=== PATIENT | female | born 1935 | race Caucasian/White ===

== ENCOUNTER 2018-05-27 18:20 | Inpatient (IN) | payer MEDICARE, OTHER ==
[2018-05-27] MEDS ORDERED: SODIUM CHLORIDE 0.9% 1,000 ML IV STA (18:44)
[2018-05-27 18:59] LABS: Basophils % (A) 0 %; Eosinophils # (A) 0.1 k/uL (0-0.7); Eosinophils % (A) 1 %; HCT 54.1 % (34.0-46.0); HGB 16.7 gm/dL (11.4-16.0); Hypochromasia Slight; Lymphocytes # (A) 3.3 k/uL (1.0-4.8); Lymphocytes % (A) 21 %; MCH 27.5 pg (25.0-35.0); MCV 88.7 fL (80.0-100.0); Mean Platelet Volume 7.5; Monocytes # (A) 0.8 k/uL (0-1.0); Monocytes % (A) 5 %; Neutrophils # (A) 11.2 k/uL (1.3-7.7); Neutrophils % (A) 71 %; Platelet Count 320 k/uL (150-450); RBC 6.09 m/uL (3.80-5.40); RDW 15.3 % (11.5-15.5); WBC 15.7 k/uL (3.8-10.6)
[2018-05-27 19:13] LABS: Albumin 3.6 g/dL (3.5-5.0); Calcium 9.1 mg/dL (8.4-10.2); Magnesium 2.1 mg/dL (1.6-2.3); Phosphorus 4.3 mg/dL (2.5-4.5); Potassium 4.1 mmol/L (3.5-5.1); Total Bilirubin 1.2 mg/dL (0.2-1.3); Total Protein 6.9 g/dL (6.3-8.2)
[2018-05-27 19:16] LABS: INR 1.3 (<1.2); Partial Thromboplastin Time 22.4 sec (22.0-30.0); Prothrombin Time 12.2 sec (9.0-12.0)
[2018-05-27 19:38] LABS: Creatine Kinase MB 1.7 ng/mL (0.0-2.4)
--- NOTE | 2018-05-27 19:38 | ED ---
Altered Mental Status HPI - General Chief Complaint: Altered Mental Status Stated Complaint: Sepsis Time Seen by Provider: 05/27/18 18:43 Source: EMS, RN notes reviewed, old records reviewed Mode of arrival: EMS Limitations: altered mental status - History of Present Illness Initial Comments: This is an 83-year-old female the ER for evaluation of altered mental status, patient is unable to give history, history obtained from patient's chart and transfer paperwork MD Complaint: altered mental status, confusion, decreased responsiveness, weakness -: days(s) Severity: moderate Consistency of Symptoms: unknown Context: other (dementia) Associated Symptoms: other (unable to answer) Treatments Prior to Arrival: oxygen - Related Data Home Medications Medication Instructions Recorded Confirmed Acetaminophen Tab [Tylenol Tab] 1,000 mg PO TID@,,05/27/18 05/27/18 Aspirin 81 mg PO DAILY@0700 05/27/18 05/27/18 Atenolol 25 mg PO DAILY@1700 05/27/18 05/27/18 Chlorthalidone 50 mg PO DAILY@0700 05/27/18 05/27/18 Levothyroxine Sodium [Synthroid] 175 mcg PO HS@2100 05/27/18 05/27/18 Multivitamins, Thera [Multivitamin 1 tab PO DAILY@0700 05/27/18 05/27/18 (formulary)] Polyethylene Glycol 3350 [Miralax] 17 gm PO DAILY@0700 05/27/18 05/27/18 Potassium Chloride [Klor-Con 10] 10 meq PO DAILY@0700 05/27/18 05/27/18 Thiamine [Vitamin B-1] 100 mg PO DAILY@0700 05/27/18 05/27/18 buPROPion HCL [Wellbutrin SR] 200 mg PO BID@,17 05/27/18 05/27/18 Allergies Allergy/AdvReac Type Severity Reaction Status Date / Time levofloxacin [From Levaquin] Allergy Unknown Verified 05/27/18 18:36 Review of Systems ROS Statement: Those systems with pertinent positive or pertinent negative responses have been documented in the HPI. ROS Other: All systems not noted in ROS Statement are negative. Past Medical History Additional Past Medical History / Comment(s): dementia History of Any Multi-Drug Resistant Organisms: None Reported Past Surgical History: No Surgical Hx Reported Past Psychological History: No Psychological Hx Reported Smoking Status: Unknown if ever smoked Past Alcohol Use History: Unable to Obtain Past Drug Use History: Unable to Obtain General Exam Limitations: altered mental status General appearance: alert, in no apparent distress Head exam: Present: atraumatic, normocephalic, normal inspection Eye exam: Present: normal appearance, PERRL, EOMI. Absent: scleral icterus, conjunctival injection, periorbital swelling ENT exam: Present: normal exam, mucous membranes moist Neck exam: Present: normal inspection. Absent: tenderness, meningismus, lymphadenopathy Respiratory exam: Present: normal lung sounds bilaterally. Absent: respiratory distress, wheezes, rales, rhonchi, stridor Cardiovascular Exam: Present: regular rate, normal rhythm, normal heart sounds. Absent: systolic murmur, diastolic murmur, rubs, gallop, clicks GI/Abdominal exam: Present: soft, normal bowel sounds. Absent: distended, tenderness, guarding, rebound, rigid Extremities exam: Present: normal inspection, full ROM, normal capillary refill. Absent: tenderness, pedal edema, joint swelling, calf tenderness Back exam: Present: normal inspection Neurological exam: Present: alert, oriented X3, CN II-XII intact Psychiatric exam: Present: normal affect, normal mood Skin exam: Present: warm, dry, intact, normal color. Absent: rash Course Vital Signs 05/27/18 18:36 Temperature 99.7 F H Pulse Rate 79 Respiratory 16 Rate Blood Pressure 141/63 O2 Sat by Pulse 96 Oximetry - Reevaluation(s) Reevaluation #1: 05/27/18 21:02 Transfer paperwork is thoroughly reviewed Medical Decision Making - Medical Decision Making 83 female unable to give history, patient is transferred to our hospital for dehydration, malnutrition, unresponsiveness. Patient will be admitted for further management - Lab Data Result diagrams: 05/27/18 18:35 05/27/18 18:35 Lab Results 05/27/18 05/27/18 05/27/18 Range/Units 18:35 18:35 18:35 WBC 15.7 H (3.8-10.6) k/uL RBC 6.09 H (3.80-5.40) m/uL Hgb 16.7 H (11.4-16.0) gm/dL Hct 54.1 H (34.0-46.0) % MCV 88.7 (80.0-100.0) fL MCH 27.5 (25.0-35.0) pg MCHC 31.0 (31.0-37.0) g/dL RDW 15.3 (11.5-15.5) % Plt Count 320 (150-450) k/uL Neutrophils % 71 % Lymphocytes % 21 % Monocytes % 5 % Eosinophils % 1 % Basophils % 0 % Neutrophils # 11.2 H (1.3-7.7) k/uL Lymphocytes # 3.3 (1.0-4.8) k/uL Monocytes # 0.8 (0-1.0) k/uL Eosinophils # 0.1 (0-0.7) k/uL Basophils # 0.0 (0-0.2) k/uL Hypochromasia Slight PT (9.0-12.0) sec INR (<1.2) APTT (22.0-30.0) sec Sodium 147 H (137-145) mmol/L Potassium 4.1 (3.5-5.1) mmol/L Chloride 108 H (98-107) mmol/L Carbon Dioxide 23 (22-30) mmol/L Anion Gap 16 mmol/L BUN 52 H (7-17) mg/dL Creatinine 1.16 H (0.52-1.04) mg/dL Est GFR (CKD-EPI)AfAm 50 (>60 ml/min/1.73 sqM) Est GFR (CKD-EPI)NonAf 44 (>60 ml/min/1.73 sqM) Glucose 166 H (74-99) mg/dL Plasma Lactic Acid Art (0.7-2.0) mmol/L Calcium 9.1 (8.4-10.2) mg/dL Phosphorus 4.3 (2.5-4.5) mg/dL Magnesium 2.1 (1.6-2.3) mg/dL Total Bilirubin 1.2 (0.2-1.3) mg/dL AST 41 H (14-36) U/L ALT 22 (9-52) U/L Alkaline Phosphatase 170 H (38-126) U/L Total Creatine Kinase 41 (30-135) U/L CK-MB (CK-2) 1.7 (0.0-2.4) ng/mL CK-MB (CK-2) Rel Index 4.1 Troponin I 0.061 H* (0.000-0.034) ng/mL Total Protein 6.9 (6.3-8.2) g/dL Albumin 3.6 (3.5-5.0) g/dL 05/27/18 05/27/18 Range/Units 18:35 18:35 WBC (3.8-10.6) k/uL RBC (3.80-5.40) m/uL Hgb (11.4-16.0) gm/dL Hct (34.0-46.0) % MCV (80.0-100.0) fL MCH (25.0-35.0) pg MCHC (31.0-37.0) g/dL RDW (11.5-15.5) % Plt Count (150-450) k/uL Neutrophils % % Lymphocytes % % Monocytes % % Eosinophils % % Basophils % % Neutrophils # (1.3-7.7) k/uL Lymphocytes # (1.0-4.8) k/uL Monocytes # (0-1.0) k/uL Eosinophils # (0-0.7) k/uL Basophils # (0-0.2) k/uL Hypochromasia PT 12.2 H (9.0-12.0) sec INR 1.3 H (<1.2) APTT 22.4 (22.0-30.0) sec Sodium (137-145) mmol/L Potassium (3.5-5.1) mmol/L Chloride (98-107) mmol/L Carbon Dioxide (22-30) mmol/L Anion Gap mmol/L BUN (7-17) mg/dL Creatinine (0.52-1.04) mg/dL Est GFR (CKD-EPI)AfAm (>60 ml/min/1.73 sqM) Est GFR (CKD-EPI)NonAf (>60 ml/min/1.73 sqM) Glucose (74-99) mg/dL Plasma Lactic Acid Art 2.0 (0.7-2.0) mmol/L Calcium (8.4-10.2) mg/dL Phosphorus (2.5-4.5) mg/dL Magnesium (1.6-2.3) mg/dL Total Bilirubin (0.2-1.3) mg/dL AST (14-36) U/L ALT (9-52) U/L Alkaline Phosphatase (38-126) U/L Total Creatine Kinase (30-135) U/L CK-MB (CK-2) (0.0-2.4) ng/mL CK-MB (CK-2) Rel Index Troponin I (0.000-0.034) ng/mL Total Protein (6.3-8.2) g/dL Albumin (3.5-5.0) g/dL - EKG Data -: EKG Interpreted by Me (EKG shows normal sinus rhythm rate of 82, RI 202, QRS 140, QTc 558) EKG shows normal: sinus rhythm Rate: normal Disposition Clinical Impression: Altered mental status, JAYME (acute kidney injury), Elevated troponin Disposition: ADMITTED IP TO THIS HOSP Condition: Fair Instructions: Altered Mental Status (ED) Is patient prescribed a controlled substance at d/c from ED?: No Referrals: Eldon Taylor MD [Primary Care Provider] - 1-2 days
[2018-05-27 19:40] LABS: Troponin I 0.061 ng/mL (0.000-0.034)
[2018-05-27] MEDS ORDERED: SODIUM CHLORIDE 0.9% 1,000 ML IV ONE (21:00)
[2018-05-28 07:29] LABS: Creatine Kinase MB 1.9 ng/mL (0.0-2.4)
[2018-05-28 07:42] LABS: Troponin I 0.069 ng/mL (0.000-0.034)
[2018-05-28] MEDS: ENOXAPARIN 40 MG/0.4 ML SYRINGE SQ SCH (09:03)
[2018-05-28] MEDS: ACETAMINOPHEN TAB 500 MG TAB PO SCH ×2 (14:13→16:51)
[2018-05-28] MEDS ORDERED: LORazepam 2 MG/ML INJ IV PRN (15:00)
--- NOTE | 2018-05-28 15:17 | P.CNNES ---
History of Present Illness Consult date: 05/28/18 History of Present Illness: Patient is an 83-year-old female who has a history of vascular dementia and stroke and is a resident [facility] who had some change in mental status and was sent to [facility] emergency room. Apparently the patient had had decreased alertness and usually she is oriented to self but she was more confused. Also she had not been eating as well or drinking is good. At [facility] emergency room she was found to have acute kidney injury elevated troponins and leukocytosis. She was transferred to [facility] with chief complaint of altered mental status. Neurology is requested to see the patient today for evaluation of altered mental status. Patient is unable to give any history. History is obtained from the patient's chart Review of Systems ROS unobtainable: due to mental status Past Medical History Past Medical History: Coronary Artery Disease (CAD), CVA/TIA, Dementia, Hypertension, Memory Impairment, Osteoarthritis (OA), Thyroid Disorder Additional Past Medical History / Comment(s): dementia History of Any Multi-Drug Resistant Organisms: None Reported Past Surgical History: No Surgical Hx Reported Additional Past Surgical History / Comment(s): per history taken from [facility] medical record Past Anesthesia/Blood Transfusion Reactions: No Reported Reaction Past Psychological History: Schizophrenia Additional Psychological History / Comment(s): documented per history Smoking Status: Unknown if ever smoked Past Alcohol Use History: Unable to Obtain Past Drug Use History: Unable to Obtain Medications and Allergies Home Medications Medication Instructions Recorded Confirmed Type Acetaminophen Tab [Tylenol Tab] 1,000 mg PO TID@07,13,17 05/27/18 05/27/18 History Aspirin 81 mg PO DAILY@0700 05/27/18 05/27/18 History Atenolol 25 mg PO DAILY@1700 05/27/18 05/27/18 History Chlorthalidone 50 mg PO DAILY@0700 05/27/18 05/27/18 History Levothyroxine Sodium [Synthroid] 175 mcg PO HS@2100 05/27/18 05/27/18 History Multivitamins, Thera [Multivitamin 1 tab PO DAILY@0700 05/27/18 05/27/18 History (formulary)] Polyethylene Glycol 3350 [Miralax] 17 gm PO DAILY@0700 05/27/18 05/27/18 History Potassium Chloride [Klor-Con 10] 10 meq PO DAILY@0700 05/27/18 05/27/18 History Thiamine [Vitamin B-1] 100 mg PO DAILY@0700 05/27/18 05/27/18 History buPROPion HCL [Wellbutrin SR] 200 mg PO BID@07,17 05/27/18 05/27/18 History Allergies Allergy/AdvReac Type Severity Reaction Status Date / Time levofloxacin [From Levaquin] Allergy Unknown Verified 05/27/18 18:36 Physical Examination - Vital Signs Vital Signs: Vital Signs Temp Pulse Pulse Resp BP BP Pulse Ox 05/28/18 11:34 97.9 F 88 18 137/71 96 05/28/18 08:00 98.7 F 90 18 142/78 98 05/28/18 04:00 96.7 F L 79 18 160/65 97 05/28/18 00:15 96.7 F L 77 18 134/64 93 L 05/27/18 22:21 73 18 166/70 97 05/27/18 20:45 72 146/68 98 05/27/18 20:15 78 144/64 99 05/27/18 19:45 82 18 139/66 99 05/27/18 18:36 99.7 F H 79 16 141/63 96 Intake and Output 05/27/18 05/28/18 05/28/18 22:59 06:59 14:59 Intake Total 0 Balance 0 Intake: Oral 0 Other: Voiding Method Diaper Diaper # Voids 1 2 Weight 68.039 kg 66 kg - Constitutional General appearance: obese - Respiratory Respiratory: lungs clear - Cardiovascular Cardiovascular: regular rate - Neurologic Neurologic examination: Mental status: Patient is awake. She is speaking gibberish. She is unable to follow commands. Next Cranial nerve examination pupils were equal and reactive. Tongue was midline. There was no nystagmus and no obvious facial asymmetry next Motor examination she had rigidity in both lower extremities. Upper extremities she was unable to participate in strength testing. Results - Laboratory Findings CBC and BMP: 05/27/18 18:35 05/27/18 18:35 Abnormal Lab Findings: Abnormal Labs 05/27/18 05/27/18 05/27/18 18:35 18:35 18:35 WBC 15.7 H RBC 6.09 H Hgb 16.7 H Hct 54.1 H Neutrophils # 11.2 H PT INR Sodium 147 H Chloride 108 H BUN 52 H Creatinine 1.16 H Glucose 166 H AST 41 H Alkaline Phosphatase 170 H Troponin I 0.061 H* 05/27/18 05/28/18 18:35 06:22 WBC RBC Hgb Hct Neutrophils # PT 12.2 H INR 1.3 H Sodium Chloride BUN Creatinine Glucose AST Alkaline Phosphatase Troponin I 0.069 H* Assessment and Plan (1) Altered mental status Current Visit: Yes Status: Acute SNOMED Code(s): 198209181 Plan: The patient is an 83-year-old woman is a resident of [facility] with history of vascular dementia and stroke. The patient was sent to emergency room because of altered mental status reduced ability to drink and eat and leukocytosis. She is unable to give any history. Apparently the patient is usually alert 1. She had a CAT scan of the brain at [facility] which showed atrophy and dilated ventricles. The patient also has increased troponin and acute kidney injury. The patient has an elevated white cell count. The patient's altered mental status may be of metabolic encephalopathy. Recommend urinalysis area and recommend follow-up CT brain as well as an EEG.
--- NOTE | 2018-05-28 15:21 | XR ---
EXAMINATION TYPE: XR chest 1V portable DATE OF EXAM: 05/28/2018 COMPARISON: 08/30/2010 HISTORY: Altered mental status and congestive heart failure TECHNIQUE: Single frontal view of the chest is obtained. FINDINGS: Overall there are low lung volumes. There is no focal air space opacity, pleural effusion, or pneumothorax seen. The cardiac silhouette size is within normal limits. Arthropathy of the glenoh umeral joints is advanced on the right.. IMPRESSION: Hypoventilatory lungs in comparison to the prior with no acute cardiopulmonary process i dentified.
--- NOTE | 2018-05-28 15:47 | CT ---
EXAMINATION TYPE: CT brain wo con DATE OF EXAM: 05/28/2018 COMPARISON: 08/31/2010 HISTORY: Patient poor historian CT DLP: 1225 mGycm Automated exposure control for dose reduction was used. TECHNIQUE: CT scan of the head is performed without contrast. FINDINGS: There is no acute intracranial hemorrhage or midline shift identified. There is diffuse v entricular and sulcal prominence similar in degree to 2011. There is low-attenuation in the perivent ricular white matter consistent with chronic small vessel ischemic change. The globes are intact and the visualized sinuses are clear. 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 IMPRESSION: No acute intracranial hemorrhage or midline shift. Ventricular enlargement may relate to diffuse atrophy or normal pressure hydrocephalus but is similar in degree to the prior of 2010 witho ut acute change.
--- NOTE | 2018-05-28 16:24 | HP ---
HISTORY AND PHYSICAL DATE OF SERVICE: 05/28/2018 CHIEF COMPLAINT: Change in mental status. HISTORY OF PRESENT ILLNESS: This 83-year-old woman with a past medical history of multiple medical problems such as CAD, CVA, TIA, dementia, hypertension, history of DJD, hypothyroidism, being followed by Dr. Taylor in the outpatient setting, was apparently a resident of an [facility]. The patient was noted to have change in mental status. The patient is unable to give a coherent history and most of the history is taken from discussion with staff and review of the chart at this time. However, the patient was given Zosyn and vancomycin. Cultures were taken and the patient was transferred to [facility] and admitted for further evaluation and treatment. The troponins were also found to be elevated at 0.061. PAST MEDICAL HISTORY: 1. History of CAD. 2. CVA, TIA. 3. Dementia. 4. Hypertension. 5. History of DJD. 6. History of hypothyroidism. MEDICATIONS PRIOR TO ADMISSION: 1. Wellbutrin SR 200 mg p.o. b.i.d. 2. Vitamin B1 100 mg p.o. daily. 3. Klor-Con 10 mEq p.o. daily. 4. MiraLAX 17 grams daily. 5. Multivitamins 1 p.o. daily. 6. Synthroid 175 mcg p.o. at bedtime. 7. Chlorthalidone 50 mg p.o. daily. 8. Atenolol 25 mg p.o. daily. 9. Aspirin 81 mg daily. 10.Tylenol 1000 mg p.o. t.i.d. ALLERGIES: LEVAQUIN. Family history, social history, review of systems could not be taken. PHYSICAL EXAMINATION: Patient is stuporous. Pulse 88, blood pressure 137/71, respiration 18, temperature 97.9, pulse ox 96% on 2 L. HEENT: Conjunctivae normal. Oral mucosa moist. NECK: No jugular venous distention. No carotid bruit. No lymph node enlargement. CARDIOVASCULAR SYSTEM: S1, S2 muffled. RESPIRATORY SYSTEM: Breath sounds diminished at the bases. Scattered rhonchi. NO crackles. ABDOMEN: Soft, obese, nontender. No mass palpable. LEGS: No edema. No swelling. NERVOUS SYSTEM: Full neurology exam is not possible. Patient moves all 4 limbs. LYMPHATICS: No lymph node palpable in neck, axillae or groin. SKIN: No ulcer, rash, bleeding. LABS AT THIS TIME: WBC 15.7, hemoglobin 16.7, INR 1.3. Sodium 147, creatinine 1.16. ASSESSMENT: 1. Change in mental status, metabolic encephalopathy, etiology undetermined. 2. Possible sepsis; rule out urinary tract infection with sepsis. 3. Increased white count. 4. Hypernatremia with increased creatinine and dehydration, present on admission. 5. Coronary artery disease. 6. Dementia. 7. History of cerebrovascular incident. 8. Hypertension. 9. History of memory impairment. 10.History of degenerative joint disease. 11.Hypothyroidism. 12.History of schizophrenia. 13.NO CODE, NO CPR, NO VENT. RECOMMENDATIONS AND DISCUSSION: In this 83-year-old woman who presented with multiple complex medical issues, we will monitor the patient closely, continue the current medications, continue with symptomatic treatment. Will initiate broad-spectrum IV antibiotics. Otherwise, I would also recommend IV fluids, avoid sedatives. Cultures. Obtain records from the peripheral hospital. I would recommend a chest x-ray and CT scan of the brain also repeat. Prognosis guarded. Further recommendations to follow. Please note: The patient is NO CODE. Neurology will be consulted. MMODL / IJN: [id number] /
[2018-05-28] MEDS: PANTOPRAZOLE 40 MG/10 ML VIAL IVP SCH (16:48)
[2018-05-28] MEDS: PIPERACILLIN-TAZOBACTAM 3.375 GM in DEXTROSE/WATER 1 50ML.BAG IVPB SCH (16:50)
[2018-05-28] MEDS: SODIUM CHLORIDE 0.9% 1,000 ML IV SCH (16:51)
[2018-05-28] MEDS: buPROPion SR 100 MG TABLET.ER PO SCH (16:51)
[2018-05-28] MEDS: ATENOLOL 25 MG TAB PO SCH (16:51)
--- NOTE | 2018-05-28 17:00 | CONS ---
CONSULTATION CHIEF COMPLAINT: Elevated troponin. Evelyne is an 83-year-old lady who was transferred from a hospital. Patient was initially admitted to [facility], where she initially presented with confusion and altered mental status. She was in a fci, where she was not doing well and subsequently was admitted to hospital. She went on to have a CT scan of the brain that revealed atrophy, chest x-ray that was unremarkable, EKG that showed sinus atrial fibrillation with rapid ventricular rate with right bundle branch block. Subsequently she converted to sinus rhythm and stayed in sinus rhythm. An EKG done here showed normal sinus rhythm with right bundle branch block. Somewhere along the line she apparently had a troponin; I am not quite sure why this was done. It was elevated, for which Cardiology had been consulted. At time of my evaluation, patient is confused, lying in the bed, and not giving any information. MEDICATIONS: Medications at home are as charted. ALLERGIES: LEVOFLOXACIN. REVIEW OF SYSTEMS: I am unable to obtain from the patient. PAST MEDICAL HISTORY: Significant for dementia. SOCIAL HISTORY: Negative for smoking. PHYSICAL EXAMINATION: Patient appears confused but not combative. Afebrile. Heart rate is 90 beats per minute. Blood pressure is 140/70, respiratory rate 18, oxygen saturation 98% on 2 L. There is no jugular venous distention. Chest exam reveals diminished air entry at the bases. Heart exam reveals first and second heart sounds and a systolic murmur at the left lower sternal border. Abdomen is soft. Examination of extremities did not reveal any edema. LABS: Hemoglobin 16.7, potassium 4.1, BUN 52, creatinine 1. Her troponins are 0.06 and 0.06. ASSESSMENT: 1. Confusional state; etiology is unclear. Management as per primary. 2. Elevated troponin related to renal insufficiency. I am going to obtain a 2D echo to evaluate her LV function and to assess for any wall motion abnormalities. Her prognosis is guarded, primarily from the underlying confusion. Thank you for allowing us to participate in the care of this pleasant lady. MMODL / IJN: [id number] /
[2018-05-28] MEDS: LEVOTHYROXINE 100 MCG TAB PO SCH ×2 (21:16→21:24)
[2018-05-28] MEDS: LEVOTHYROXINE 75 MCG TAB PO SCH ×2 (21:17→21:24)
[2018-05-29] MEDS: PIPERACILLIN-TAZOBACTAM 3.375 GM in DEXTROSE/WATER 1 50ML.BAG IVPB SCH ×4 (00:16→23:45)
[2018-05-29] MEDS: SODIUM CHLORIDE 0.9% 1,000 ML IV SCH (05:26)
[2018-05-29 06:41] LABS: Basophils % (A) 0 %; Eosinophils # (A) 0.1 k/uL (0-0.7); Eosinophils % (A) 1 %; Hypochromasia Marked; Lymphocytes # (A) 2.4 k/uL (1.0-4.8); Lymphocytes % (A) 21 %; MCH 27.4 pg (25.0-35.0); MCHC 30.4 g/dL (31.0-37.0); MCV 90.1 fL (80.0-100.0); Mean Platelet Volume 7.4; Monocytes # (A) 0.7 k/uL (0-1.0); Monocytes % (A) 6 %; Neutrophils # (A) 8.2 k/uL (1.3-7.7); Neutrophils % (A) 71 %; Platelet Count 264 k/uL (150-450); RBC 5.11 m/uL (3.80-5.40); RDW 15.4 % (11.5-15.5); WBC 11.7 k/uL (3.8-10.6)
[2018-05-29 06:53] LABS: Calcium 8.6 mg/dL (8.4-10.2); Potassium 3.4 mmol/L (3.5-5.1)
[2018-05-29] MEDS: MULTIVITAMINS, THERA 1 EACH TAB PO SCH (07:20)
[2018-05-29] MEDS: POLYETHYLENE GLYCOL 3350 17 GM POWD.PACK PO SCH (07:20)
[2018-05-29] MEDS: CHLORTHALIDONE 25 MG TAB PO SCH (07:20)
[2018-05-29] MEDS: ASPIRIN 81 MG PO SCH (07:20)
[2018-05-29] MEDS: buPROPion SR 100 MG TABLET.ER PO SCH ×2 (07:20→16:32)
[2018-05-29] MEDS: POTASSIUM CHLORIDE ER 10 MEQ TAB.ER.PRT PO SCH (07:20)
[2018-05-29] MEDS: ACETAMINOPHEN TAB 500 MG TAB PO SCH ×3 (07:20→16:32)
[2018-05-29] MEDS: THIAMINE 100 MG TAB PO SCH (07:21)
[2018-05-29] MEDS: PANTOPRAZOLE 40 MG/10 ML VIAL IVP SCH (07:47)
[2018-05-29] MEDS: ENOXAPARIN 40 MG/0.4 ML SYRINGE SQ SCH (07:48)
[2018-05-29] MEDS ORDERED: Potassium Replacement Protocol 1 EACH MISC MISCELLANE PRN (08:37)
[2018-05-29] MEDS ORDERED: DEXTROSE 5% IN WATER 1,000 ML IV ONE (11:27)
[2018-05-29] MEDS: POTASSIUM CHLORIDE 10 MEQ in WATER FOR INJECTION 1 100ML.BAG IVPB SCH ×2 (11:55→13:02)
--- NOTE | 2018-05-29 14:30 | P.PN ---
Subjective Progress Note Date: 05/29/18 This 83-year-old female patient who presented to the hospital with acute change in mental status. She was originally at [place] emergency department and was transferred here. Patient's baseline mentation is normally alert and oriented to self but she had become more confused and the staff at the nursing facility significant concern. CAT scan of the brain showed atrophy , chest x-ray was unremarkable. EKG showed atrial fibrillation with a rapid ventricular response and a right bundle branch block initially. Since that time the patient has converted back to normal sinus mechanism. 2 troponins were found to be mildly elevated, non-trending and not consistent with acute myocardial infarction. The patient's sodium level is elevated. She is hemodynamically stable. Cannot answer questions at this time. Mumbles but is nonverbal. Objective - Vital Signs Vital signs: Vital Signs Temp 97.3 F L 05/29/18 11:50 Pulse 90 05/29/18 11:50 Resp 18 05/29/18 11:50 BP 115/65 05/29/18 11:50 Pulse Ox 98 05/29/18 11:50 Intake & Output 05/28/18 05/29/18 05/29/18 18:59 06:59 18:59 Intake Total 0 90 Balance 0 90 Weight 64 kg Intake: Oral 0 90 Other: Voiding Method Diaper Diaper Diaper Incontinent # Voids 2 2 # Bowel Movements 0 - Exam Gen.: Patient is sleepy, in no acute distress Lungs: Clear to auscultation no wheezes rales or rhonchi appreciated Heart: Regular rate and rhythm, 2/6 systolic murmur Abdomen: Soft, nondistended, bowel sounds positive Extremity: No lower extremity edema is noted. Pedal pulses are palpable. Neuro: Patient is sleepy, confused. - Labs CBC & Chem 7: 05/29/18 06:02 05/29/18 06:02 Labs: Abnormal Lab Results - Last 24 Hours (Table) 05/29/18 05/29/18 Range/Units 06:02 06:02 WBC 11.7 H (3.8-10.6) k/uL MCHC 30.4 L (31.0-37.0) g/dL Neutrophils # 8.2 H (1.3-7.7) k/uL Sodium 151 H (137-145) mmol/L Potassium 3.4 L (3.5-5.1) mmol/L Chloride 118 H (98-107) mmol/L Carbon Dioxide 20 L (22-30) mmol/L BUN 50 H (7-17) mg/dL Creatinine 1.16 H (0.52-1.04) mg/dL Glucose 126 H (74-99) mg/dL Microbiology - Last 24 Hours (Table) 05/28/18 11:30 Blood Culture - Preliminary Blood No Growth after 24 hours 05/28/18 11:18 Blood Culture - Preliminary Blood No Growth after 24 hours Assessment and Plan Assessment: Acute change in mental status with baseline orientation 1 Elevated troponin in the presence of renal insufficiency, not consistent with acute myocardial ischemia A. fib RVR, currently in a normal sinus mechanism Plan: Obtain echocardiogram to evaluate LV size and systolic function and continue with beta [place] and aspirin. Discontinue IV saline. It is unknown if the patient has a history of atrial fibrillation in the past as there is no medical documentation to support this. Patient has not been seen here in the past. She is not a good historian and no family is present. I do not believe the patient would be a good candidate for anticoagulation. From a cardiac standpoint, we will continue to monitor her on an as-needed basis. Please do not hesitate to call with any questions or concerns.
--- NOTE | 2018-05-29 15:16 | P.PN ---
Subjective Progress Note Date: 05/29/18 Principal diagnosis: Mental status changes I'm dictating progress note for Dr. García Interval history: Patient is an 83-year-old female who has a history of vascular dementia and stroke and is a resident [facility] who had some change in mental status and was sent to [place] emergency room. Apparently the patient had had decreased alertness and usually she is oriented to self but she was more confused. Also she had not been eating as well or drinking is good. At [place] emergency room she was found to have acute kidney injury elevated troponins and leukocytosis. She was transferred to [facility] with chief complaint of altered mental status. CAT scan of the brain showed atrophy, chest x-ray was unremarkable. EKG showed atrial fibrillation with a rapid ventricular response and a right bundle branch block initially. She does admit to the inpatient unit and has had neurology as well as cardiology consultation. 05/29/2018. Patient was seen and examined this morning. She is laying in bed. She is continued to be confused and there a poor historian. No reported fever. Blood culture, and urine culture pending. 2 troponins were found to be mildly elevated , non-trending and not consistent with acute myocardial infarction. The patient 's sodium level is elevated. IV fluids changed to D5 water. She is on IV antibiotics Zosyn. Objective - Vital Signs Vital signs: Vital Signs Temp 97.3 F L 05/29/18 11:50 Pulse 90 05/29/18 11:50 Resp 18 05/29/18 11:50 BP 115/65 05/29/18 11:50 Pulse Ox 98 05/29/18 11:50 Intake & Output 05/28/18 05/29/18 05/29/18 18:59 06:59 18:59 Intake Total 0 90 Balance 0 90 Weight 64 kg Intake: Oral 0 90 Other: Voiding Method Diaper Diaper Diaper Incontinent # Voids 2 2 # Bowel Movements 0 - Exam PHYSICAL EXAM: VITAL SIGNS: As mentioned above GENERAL: Patient is sleepy not in any acute discomfort HEENT: Normocephalic NECK: No JVD. Supple CARDIOVASCULAR: S1, S2 muffled. RESPIRATION: Breath sounds diminished in the bases. No rhonchi or crackles. No bronchial breathing. ABDOMEN: Soft, nontender . No guarding. .Bowel sounds heard. LEGS: No significant edema. Motor examination she had rigidity in both lower extremities. Upper extremities she was unable to participate in strength testing. PSYCHIATRY: Resting NERVOUS SYSTEM: Skin: no ulcer no rash Active Medications Acetaminophen (Tylenol Tab) 1,000 mg PO TID@,, [facility] Last Admin: 05/29/18 12:01 Dose: Not Given Aspirin (Aspirin) 81 mg PO DAILY@0700 [facility] Last Admin: 05/29/18 07:20 Dose: Not Given Atenolol (Tenormin) 25 mg PO DAILY@1700 [facility] Last Admin: 05/28/18 16:51 Dose: Not Given Bupropion HCl (Wellbutrin Sr) 200 mg PO BID@ [facility] Last Admin: 05/29/18 07:20 Dose: Not Given Chlorthalidone (Hygroton) 50 mg PO DAILY@0700 [facility] Last Admin: 05/29/18 07:20 Dose: Not Given Enoxaparin Sodium (Lovenox) 40 mg SQ DAILY [facility] Last Admin: 05/29/18 07:48 Dose: 40 mg Piperacillin/Tazobactam/ (Dextrose 3.375 gm/ IV Solution) 50 mls @ 12.5 mls/hr IVPB Q8HR [facility] Last Admin: 05/29/18 07:47 Dose: 12.5 mls/hr Dextrose/Water (Dextrose 5%-Water Iv Soln) 1,000 mls @ 75 mls/hr IV .[id number] ONE Stop: 05/30/18 00:46 Last Admin: 05/29/18 12:01 Dose: 75 mls/hr Levothyroxine Sodium (Synthroid) 75 mcg PO HS@2100 [facility] Last Admin: 05/28/18 21:24 Dose: Not Given Levothyroxine Sodium (Synthroid) 100 mcg PO HS@2100 [facility] Last Admin: 05/28/18 21:24 Dose: Not Given Lorazepam (Ativan) 0.5 mg IV Q6HR PRN PRN Reason: Anxiety Miscellaneous Information (Potassium Per Protocol) 1 each MISCELLANE DAILY PRN ; Protocol PRN Reason: Per Protocol Multivitamins (Theragran) 1 each PO DAILY@0700 [facility] Last Admin: 05/29/18 07:20 Dose: Not Given Pantoprazole Sodium (Protonix) 40 mg IVP DAILY [facility] Last Admin: 05/29/18 07:47 Dose: 40 mg Polyethylene Glycol (Miralax) 17 gm PO DAILY@0700 [facility] Last Admin: 05/29/18 07:20 Dose: Not Given Potassium Chloride (K-Dur 10) 10 meq PO DAILY@0700 [facility] Last Admin: 05/29/18 07:20 Dose: Not Given Thiamine HCl (Vitamin B-1) 100 mg PO DAILY@0700 [facility] Last Admin: 05/29/18 07:21 Dose: Not Given . - Labs CBC & Chem 7: 05/29/18 06:02 05/29/18 14:27 Labs: Abnormal Lab Results - Last 24 Hours (Table) 05/29/18 05/29/18 Range/Units 06:02 06:02 WBC 11.7 H (3.8-10.6) k/uL MCHC 30.4 L (31.0-37.0) g/dL Neutrophils # 8.2 H (1.3-7.7) k/uL Sodium 151 H (137-145) mmol/L Potassium 3.4 L (3.5-5.1) mmol/L Chloride 118 H (98-107) mmol/L Carbon Dioxide 20 L (22-30) mmol/L BUN 50 H (7-17) mg/dL Creatinine 1.16 H (0.52-1.04) mg/dL Glucose 126 H (74-99) mg/dL Microbiology - Last 24 Hours (Table) 05/28/18 11:30 Blood Culture - Preliminary Blood No Growth after 24 hours 05/28/18 11:18 Blood Culture - Preliminary Blood No Growth after 24 hours Assessment and Plan Assessment: Acute mental status changes negative CAT scan possible metabolic encephalopathy Metabolic encephalopathy Urinary tract infection Possible sepsis Atrial fibrillation with RVR, currently in normal sinus rhythm History of CVA/TIA Hyponatremia Hypokalemia CKD stage III Coronary artery disease HTN Thyroid disorder Dementia Osteoarthritis Plan: Continue current medication, antibiotic in the form of Zosyn. Change IV fluid D5 water. Patient is followed by neurology as well as cardiology. Obtain echocardiogram to evaluate LV size and systolic function. As for a neurology The patient's altered mental status may be of metabolic encephalopathy. Recommend urinalysis area and recommend follow-up CT brain as well as an EEG. Monitor CBC and BMP. Prognosis is guarded due to multiple complex medical problems. Monitor patient closely, although partly from her clinical course. The impression and plan of care has been dictated as directed. : I performed a history and examination of this patient, discussed the same with the dictator. I agree with the dictator's note ,documented as a scribe. Any additional findings or plans will be noted.
[2018-05-29] MEDS: ATENOLOL 25 MG TAB PO SCH (16:32)
[2018-05-29] MEDS: LEVOTHYROXINE 75 MCG TAB PO SCH (20:53)
[2018-05-29] MEDS: LEVOTHYROXINE 100 MCG TAB PO SCH (20:53)
[2018-05-30] MEDS: ACETAMINOPHEN TAB 500 MG TAB PO SCH ×3 (06:16→14:03)
[2018-05-30] MEDS: ASPIRIN 81 MG PO SCH (06:16)
[2018-05-30] MEDS: THIAMINE 100 MG TAB PO SCH (06:17)
[2018-05-30] MEDS: POTASSIUM CHLORIDE ER 10 MEQ TAB.ER.PRT PO SCH (06:17)
[2018-05-30] MEDS: CHLORTHALIDONE 25 MG TAB PO SCH (06:17)
[2018-05-30] MEDS: MULTIVITAMINS, THERA 1 EACH TAB PO SCH (06:17)
[2018-05-30] MEDS: buPROPion SR 100 MG TABLET.ER PO SCH ×2 (06:17→15:20)
[2018-05-30] MEDS: POLYETHYLENE GLYCOL 3350 17 GM POWD.PACK PO SCH (06:17)
[2018-05-30 07:52] LABS: Calcium 8.9 mg/dL (8.4-10.2); Potassium 3.7 mmol/L (3.5-5.1)
[2018-05-30 08:34] LABS: Basophils # (A) 0.1 k/uL (0-0.2); Basophils % (A) 0 %; Eosinophils # (A) 0.1 k/uL (0-0.7); Eosinophils % (A) 0 %; HCT 48.3 % (34.0-46.0); HGB 15.1 gm/dL (11.4-16.0); Hypochromasia Slight; Lymphocytes % (A) 12 %; MCH 27.6 pg (25.0-35.0); MCHC 31.2 g/dL (31.0-37.0); MCV 88.4 fL (80.0-100.0); Mean Platelet Volume 7.5; Monocytes # (A) 1.1 k/uL (0-1.0); Monocytes % (A) 6 %; Neutrophils # (A) 14.3 k/uL (1.3-7.7); Neutrophils % (A) 81 %; Platelet Count 273 k/uL (150-450); RBC 5.47 m/uL (3.80-5.40); RDW 15.4 % (11.5-15.5); WBC 17.7 k/uL (3.8-10.6)
[2018-05-30] MEDS: ENOXAPARIN 40 MG/0.4 ML SYRINGE SQ SCH (08:59)
[2018-05-30] MEDS: PANTOPRAZOLE 40 MG/10 ML VIAL IVP SCH (08:59)
[2018-05-30] MEDS: PIPERACILLIN-TAZOBACTAM 3.375 GM in DEXTROSE/WATER 1 50ML.BAG IVPB SCH ×3 (08:59→23:56)
--- NOTE | 2018-05-30 11:42 | ECHOF ---
Referral Reason:EF evaluation MEASUREMENTS -------- HEIGHT: 167.6 cm WEIGHT: 64.0 kg BP: 166/89 RVIDd: 2.6 cm (< 3.3) IVSd: 1.4 cm (0.6 - 1.1) LVIDd: 3.9 cm (3.9 - 5.3) LVPWd: 1.4 cm (0.6 - 1.1) IVSs: 1.9 cm LVIDs: 3.0 cm LVPWs: 1.9 cm LA Diam: 3.8 cm (2.7 - 3.8) LAESV Index (A-L): 21.80 ml/m Ao Diam: 3.3 cm (2.0 - 3.7) AV Cusp: 2.6 cm (1.5 - 2.6) MV EXCURSION: 8.330 mm (> 18.000) MV EF SLOPE: 113 mm/s (70 - 150) EPSS: 0.9 cm MV E Bill: 0.78 m/s MV DecT: 98 ms MV A Bill: 1.40 m/s MV E/A Ratio: 0.56 AV maxP.56 mmHg AV meanP.85 mmHg RAP: 5.00 mmHg RVSP: 38.21 mmHg FINDINGS -------- Sinus rhythm. This was a technically adequate study. The left ventricular size is normal. There is moderate concentric left ventricular hypertrophy. O verall left ventricular systolic function is normal with, an EF between 60 - 65 %. The right ventricle is normal in size and function. Normal LA size by volume 22+/-6 ml/m2. The right atrium is normal in size. There is mild aortic valve sclerosis. There is mild aortic stenosis present. Peak/mean gradient a cross the Aortic Valve is 12.56mmHg / 4.85mmHg. Moderate mitral annular calcification present. [id number] mitral regurgitation is present. Mild tricuspid regurgitation present. There is mild pulmonary hypertension. The right ventricular systolic pressure, as measured by Doppler, is 38.21mmHg. The pulmonic valve was not well visualized. The aortic root size is normal. Normal inferior vena cava with normal inspiratory collapse consistent with estimated right atrial pre ssure of 5 mmHg. There is no pericardial effusion. CONCLUSIONS -------- 1. Sinus rhythm. 2. This was a technically adequate study. 3. The left ventricular size is normal. 4. There is moderate concentric left ventricular hypertrophy. 5. Overall left ventricular systolic function is normal with, an EF between 60 - 65 %. 6. The right ventricle is normal in size and function. 7. Normal LA size by volume 22+/-6 ml/m2. 8. The right atrium is normal in size. 9. There is mild aortic valve sclerosis. 10. There is mild aortic stenosis present. 11. Peak/mean gradient across the Aortic Valve is 12.56mmHg / 4.85mmHg. 12. Moderate mitral annular calcification present. 13. [id number]-[id number] mitral regurgitation is present. 14. Mild tricuspid regurgitation present. 15. There is mild pulmonary hypertension. 16. The right ventricular systolic pressure, as measured by Doppler, is 38.21mmHg. 17. The pulmonic valve was not well visualized. 18. The aortic root size is normal. 19. Normal inferior vena cava with normal inspiratory collapse consistent with estimated right atrial pressure of 5 mmHg. 20. There is no pericardial effusion. SILO PAINTER: Emiliana Bird RDCS
[2018-05-30] MEDS: ATENOLOL 25 MG TAB PO SCH (14:03)
--- NOTE | 2018-05-30 14:36 | CDI ---
Last Revision, July 2017 Documentation Clarification Form Date: 05/30/2018 2:30:36 PM From: Kim BarthYENY, CCDS Admit Date: 05/27/2018 9:00:00 PM Patient Name: Evelyne Abdi Visit Number: [id number] Discharge Date: ATTENTION: The Clinical Documentation Specialists (CDI) and [facility] Coding Staff appreciate your assistance in clarifying documentation. Please respond to the clarification below the line at the bottom and electronically sign. The CDI & [facility] Coding staff will review the response and follow-up if needed. Please note: Queries are made part of the Legal Health Record. If you have any questions, please contact the author of this message via ITS. Jin Santiago MD: Atrial fibrillation is documented in the cardiology consult & subsequent progress note as "EKG that showed sinus atrial fibrillation with rapid ventricular rate with right bundle branch block." (EKG performed at [facility]) History/Risk Factors: Atrial Fibrillation, CAD, CKD III & Vascular dementia. Clinical Indicators: Presented as transfer from [facility] with altered mental status, diagnosed with Sepsis secondary to UTI, Atrial Fibrillation, Metabolic encephalopathy, Acute renal failure & Hypernatremia. EKG on admission to [facility]: R 82 nsr, left axis deviation, RBBB, Old infarct. Treatment: IV fl rate 100, IV Ativan, IV PPI, IV Zosyn, IV Kcl, admit to telemetry. In your professional opinion, can you please clarify the type of atrial fibrillation, if known? Chronic/Permanent Paroxysmal Persistent Other, please specify Unable to determine Persistent atrial fibrillation MTDD
[2018-05-30] MEDS: METOPROLOL TARTRATE 5 MG/5 ML VIAL IVP SCH (15:40)
--- NOTE | 2018-05-30 15:56 | P.PN ---
Subjective Progress Note Date: 05/30/18 Progress note being dictated for Dr. García. Interval history: Patient is an 83-year-old female who has a history of vascular dementia and stroke and is a resident [facility] who had some change in mental status and was sent to [place] emergency room. Apparently the patient had had decreased alertness and usually she is oriented to self but she was more confused. Also she had not been eating as well or drinking is good. At [place] emergency room she was found to have acute kidney injury elevated troponins and leukocytosis. She was transferred to [facility] with chief complaint of altered mental status. CAT scan of the brain showed atrophy, chest x-ray was unremarkable. EKG showed atrial fibrillation with a rapid ventricular response and a right bundle branch block initially. She does admit to the inpatient unit and has had neurology as well as cardiology consultation. 05/29/2018. Patient was seen and examined this morning. She is laying in bed. She is continued to be confused and there a poor historian. No reported fever. Blood culture, and urine culture pending. 2 troponins were found to be mildly elevated , non-trending and not consistent with acute myocardial infarction. The patient 's sodium level is elevated. IV fluids changed to D5 water. She is on IV antibiotics Zosyn. 06/09/2018 maintained on D5W at 75 MLS an hour, sodium down to 150, CO2 21. Remains confused, sometimes oriented to person. Spit out beta kingston this morning, telemetry reporting heart rates up into the 150s. Continues on Zosyn, Afebrile, WBC up to 17.7. Echo reporting normal LV function, EF 60-65%, mild-to -moderate mitral regurgitation, mild pulmonary hypertension. Objective - Vital Signs Vital signs: Vital Signs Temp 97.4 F L 05/30/18 08:00 Pulse 100 05/30/18 08:00 Resp 20 05/30/18 08:00 BP 164/89 05/30/18 08:00 Pulse Ox 98 05/30/18 08:00 Intake & Output 05/29/18 05/30/18 05/30/18 18:59 06:59 18:59 Intake Total 330 450 Balance 330 450 Intake: Intake, IV Titration 450 Amount Dextrose 5% in Water 1, 450 000 ml @ 75 mls/hr IV . [id number] Rx#:[id number] Oral 330 Other: Voiding Method Diaper Diaper Diaper Incontinent Incontinent Incontinent # Voids 1 1 # Bowel Movements 0 - Exam VITAL SIGNS: As mentioned above GENERAL: Patient is laying in bed, sometimes responding to name, no acute distress. Occasionally mumbles. HEENT: Normocephalic NECK: No JVD. Supple CARDIOVASCULAR: S1, S2 muffled. Systolic murmur RESPIRATION: Breath sounds diminished in the bases. No rhonchi or crackles. No bronchial breathing. ABDOMEN: Soft, nontender . No guarding. .Bowel sounds heard. LEGS: No significant edema. Motor examination she had rigidity in both lower extremities. Upper extremities she was unable to participate in strength testing. PSYCHIATRY: Resting NERVOUS SYSTEM: Skin: no ulcer no rash - Labs CBC & Chem 7: 05/30/18 06:50 05/30/18 06:50 Labs: Abnormal Lab Results - Last 24 Hours (Table) 05/30/18 05/30/18 Range/Units 06:50 06:50 WBC 17.7 H (3.8-10.6) k/uL RBC 5.47 H (3.80-5.40) m/uL Hct 48.3 H (34.0-46.0) % Neutrophils # 14.3 H (1.3-7.7) k/uL Monocytes # 1.1 H (0-1.0) k/uL Sodium 150 H (137-145) mmol/L Chloride 117 H (98-107) mmol/L Carbon Dioxide 21 L (22-30) mmol/L BUN 38 H (7-17) mg/dL Glucose 202 H (74-99) mg/dL Microbiology - Last 24 Hours (Table) 05/28/18 11:30 Blood Culture - Preliminary Blood No Growth after 24 hours 05/28/18 11:18 Blood Culture - Preliminary Blood No Growth after 24 hours Assessment and Plan Assessment: Acute mental status changes negative CAT scan possible metabolic encephalopathy Metabolic encephalopathy Urinary tract infection Possible sepsis Atrial fibrillation with RVR, currently in normal sinus rhythm History of CVA/TIA Hyponatremia Hypokalemia CKD stage III Coronary artery disease HTN Thyroid disorder Dementia Osteoarthritis Mitral regurgitation Mild pulmonary hypertension Plan: Continue on current medication regime ,monitoring and symptomatic treatment. Maintain IV antibiotics of Zosyn, IV fluid hydration of D5 W. Close monitoring of sodium, potassium, with repeat labs ordered for a.m. Lopressor IV Q 8H scheduled added to med regime as patient spitting out beta blockers. Further recommendations to follow. The impression and plan of care has been dictated as directed. : I performed a history and examination of this patient, discussed the same with the dictator. I agree with the dictator's note ,documented as a scribe. Any additional findings or plans will be noted.
[2018-05-30 20:35] LABS: Glucose,Whole Blood 222 mg/dL (75-99)
[2018-05-30] MEDS: LEVOTHYROXINE 75 MCG TAB PO SCH (20:47)
[2018-05-30] MEDS: LEVOTHYROXINE 100 MCG TAB PO SCH (20:47)
[2018-05-31] MEDS: METOPROLOL TARTRATE 5 MG/5 ML VIAL IVP SCH ×2 (05:04→09:48)
[2018-05-31 06:12] LABS: Glucose,Whole Blood 184 mg/dL (75-99)
[2018-05-31] MEDS: ACETAMINOPHEN TAB 500 MG TAB PO SCH ×3 (06:19→17:13)
[2018-05-31] MEDS: ASPIRIN 81 MG PO SCH (06:19)
[2018-05-31] MEDS: THIAMINE 100 MG TAB PO SCH (06:20)
[2018-05-31] MEDS: MULTIVITAMINS, THERA 1 EACH TAB PO SCH (06:20)
[2018-05-31] MEDS: buPROPion SR 100 MG TABLET.ER PO SCH ×2 (06:20→17:13)
[2018-05-31] MEDS: POLYETHYLENE GLYCOL 3350 17 GM POWD.PACK PO SCH (06:20)
[2018-05-31] MEDS: POTASSIUM CHLORIDE ER 10 MEQ TAB.ER.PRT PO SCH (06:20)
[2018-05-31] MEDS: CHLORTHALIDONE 25 MG TAB PO SCH (06:20)
[2018-05-31 07:52] LABS: Basophils % (A) 0 %; Eosinophils # (A) 0.1 k/uL (0-0.7); Eosinophils % (A) 0 %; HCT 45.2 % (34.0-46.0); HGB 14.2 gm/dL (11.4-16.0); Hypochromasia Moderate; Lymphocytes % (A) 20 %; MCH 27.8 pg (25.0-35.0); MCHC 31.5 g/dL (31.0-37.0); MCV 88.2 fL (80.0-100.0); Mean Platelet Volume 7.6; Monocytes # (A) 0.8 k/uL (0-1.0); Monocytes % (A) 5 %; Neutrophils # (A) 10.9 k/uL (1.3-7.7); Neutrophils % (A) 73 %; Platelet Count 222 k/uL (150-450); RBC 5.12 m/uL (3.80-5.40); RDW 15.2 % (11.5-15.5); WBC 14.9 k/uL (3.8-10.6)
[2018-05-31 08:12] LABS: Calcium 8.1 mg/dL (8.4-10.2)
[2018-05-31 08:15] LABS: Potassium 2.6 mmol/L (3.5-5.1)
[2018-05-31] MEDS: PANTOPRAZOLE 40 MG/10 ML VIAL IVP SCH (08:34)
[2018-05-31] MEDS: ENOXAPARIN 40 MG/0.4 ML SYRINGE SQ SCH (08:34)
[2018-05-31] MEDS: PIPERACILLIN-TAZOBACTAM 3.375 GM in DEXTROSE/WATER 1 50ML.BAG IVPB SCH ×3 (08:34→23:57)
[2018-05-31] MEDS ORDERED: Magnesium Replacement Protocol 1 EACH MISC MISCELLANE PRN (09:30)
[2018-05-31] MEDS ORDERED: POTASSIUM CHLORIDE 40 MEQ in WATER FOR INJECTION 1 100ML.BAG IVPB STA (09:37)
[2018-05-31] MEDS: POTASSIUM CHLORIDE 20 MEQ in WATER FOR INJECTION 1 100ML.BAG IVPB SCH ×4 (09:59→20:19)
[2018-05-31 12:29] LABS: Appearance,Urine Turbid (Clear); Bilirubin,Urine Negative (Negative); Blood,Urine Trace (Negative); Color,Urine Yellow; Glucose,Urine (UA) Negative (Negative); Ketones,Urine Negative (Negative); Leukocyte Esterase,Urine Trace (Negative); Nitrite,Urine Negative (Negative); Protein,Urine 1+ (Negative); RBC,Urine 42 /hpf (0-5); Specific Gravity,Urine 1.017 (1.001-1.035); Squamous Epithelial Cell,Urine <1 /hpf (0-4); Uric Acid Crystals,Urine Occasional /hpf; Urobilinogen,Urine <2.0 mg/dL (<2.0)
--- NOTE | 2018-05-31 12:32 | XR ---
EXAMINATION TYPE: XR chest 1V DATE OF EXAM: 05/31/2018 COMPARISON: 05/28/2018 HISTORY: Shortness of breath TECHNIQUE: Single frontal view of the chest is obtained. FINDINGS: Diffuse osteopenia and arthropathy of the shoulders. There is atherosclerotic change of th e aorta. The heart is stable. Limited inspiration. No overt failure or pneumothorax. Subsegmental perla nges at both lung bases. IMPRESSION: Basilar subsegmental atelectasis or infiltrate stable.
[2018-05-31] MEDS: D5W WITH KCL 20 MEQ/L 1,000 ML IV SCH (14:08)
[2018-05-31 16:39] LABS: Glucose,Whole Blood 173 mg/dL (75-99)
--- NOTE | 2018-05-31 17:01 | P.PN ---
Subjective Progress Note Date: 05/31/18 Progress note being dictated for Dr. García. Interval history: Patient is an 83-year-old female who has a history of vascular dementia and stroke and is a resident [facility] who had some change in mental status and was sent to [place] emergency room. Apparently the patient had had decreased alertness and usually she is oriented to self but she was more confused. Also she had not been eating as well or drinking is good. At [place] emergency room she was found to have acute kidney injury elevated troponins and leukocytosis. She was transferred to [facility] with chief complaint of altered mental status. CAT scan of the brain showed atrophy, chest x-ray was unremarkable. EKG showed atrial fibrillation with a rapid ventricular response and a right bundle branch block initially. She does admit to the inpatient unit and has had neurology as well as cardiology consultation. 05/29/2018. Patient was seen and examined this morning. She is laying in bed. She is continued to be confused and there a poor historian. No reported fever. Blood culture, and urine culture pending. 2 troponins were found to be mildly elevated , non-trending and not consistent with acute myocardial infarction. The patient 's sodium level is elevated. IV fluids changed to D5 water. She is on IV antibiotics Zosyn. 06/09/2018 maintained on D5W at 75 MLS an hour, sodium down to 150, CO2 21. Remains confused, sometimes oriented to person. Spit out beta kingston this morning, telemetry reporting heart rates up into the 150s. Continues on Zosyn, Afebrile, WBC up to 17.7. Echo reporting normal LV function, EF 60-65%, mild-to -moderate mitral regurgitation, mild pulmonary hypertension. 05/31/2018 continues on D5W with sodium improving, 146. Potassium 2.6, receiving supplements. Telemetry reporting sinus rhythm with paroxysmal atrial fibrillation. A Pause of 1-1/2-2 seconds reported from last night/contract technician hours during her sleep. Evaluated by cardiology, IV beta kingston discontinued, oral beta kingston resumed. Maintained on IV antibiotics, T-max 100.9. Blood cultures remain negative .Earlier had been more lethargic, not talking; currently she's responding, answering simple questions. Objective - Vital Signs Vital signs: Vital Signs Temp 99.0 F 05/31/18 16:00 Pulse 71 05/31/18 16:00 Resp 18 05/31/18 16:00 BP 132/69 05/31/18 16:00 Pulse Ox 100 05/31/18 16:00 Intake & Output 05/30/18 05/31/18 05/31/18 18:59 06:59 18:59 Intake Total 650 400 600 Balance 650 400 600 Weight 64 kg 59 kg Intake: Intake, IV Titration 650 400 600 Amount D5w with KCl 20 Meq/l 1, 600 000 ml @ 75 mls/hr IV . [id number] [facility] Rx#:[id number] Dextrose 5% in Water 1, 600 400 000 ml @ 75 mls/hr IV . [id number] [facility] Rx#:[id number] Piperacillin-Tazobactam 3 50 .375 gm In Dextrose/Water 1 50ml.bag @ 12.5 mls/hr IVPB Q8HR [facility] Rx#: [id number] Other: Voiding Method Diaper Diaper Diaper Incontinent Incontinent Incontinent # Voids 1 2 # Bowel Movements 0 - Exam VITAL SIGNS: As mentioned above GENERAL: Patient is laying in bed, sometimes responding to name, no acute distress. HEENT: Normocephalic NECK: No JVD. Supple CARDIOVASCULAR: S1, S2 muffled. Systolic murmur RESPIRATION: Breath sounds diminished in the bases. No rhonchi or crackles. No bronchial breathing. ABDOMEN: Soft, nontender . No guarding. .Bowel sounds heard. LEGS: No significant edema. Motor examination she had rigidity in both lower extremities. Upper extremities she was unable to participate in strength testing. PSYCHIATRY: Resting NERVOUS SYSTEM: Answering simple questions Skin: no ulcer no rash - Labs CBC & Chem 7: 05/31/18 07:13 05/31/18 15:08 Labs: Abnormal Lab Results - Last 24 Hours (Table) 05/30/18 05/31/18 05/31/18 Range/Units 20:33 06:06 07:13 WBC 14.9 H (3.8-10.6) k/uL Neutrophils # 10.9 H (1.3-7.7) k/uL Sodium (137-145) mmol/L Potassium (3.5-5.1) mmol/L Chloride (98-107) mmol/L BUN (7-17) mg/dL Glucose (74-99) mg/dL POC Glucose (mg/dL) 222 H 184 H (75-99) mg/dL Calcium (8.4-10.2) mg/dL Urine Appearance (Clear) Urine Protein (Negative) Urine Blood (Negative) Ur Leukocyte Esterase (Negative) Urine RBC (0-5) /hpf Uric Acid Crystals (None) /hpf 05/31/18 05/31/18 05/31/18 Range/Units 07:13 10:00 16:37 WBC (3.8-10.6) k/uL Neutrophils # (1.3-7.7) k/uL Sodium 146 H (137-145) mmol/L Potassium 2.6 L* (3.5-5.1) mmol/L Chloride 112 H (98-107) mmol/L BUN 30 H (7-17) mg/dL Glucose 194 H (74-99) mg/dL POC Glucose (mg/dL) 173 H (75-99) mg/dL Calcium 8.1 L (8.4-10.2) mg/dL Urine Appearance Turbid H (Clear) Urine Protein 1+ H (Negative) Urine Blood Trace H (Negative) Ur Leukocyte Esterase Trace H (Negative) Urine RBC 42 H (0-5) /hpf Uric Acid Crystals Occasional H (None) /hpf Microbiology - Last 24 Hours (Table) 05/28/18 11:30 Blood Culture - Preliminary Blood No Growth after 72 hours 05/28/18 11:18 Blood Culture - Preliminary Blood No Growth after 72 hours Assessment and Plan Assessment: Acute mental status changes negative CAT scan possible metabolic encephalopathy Metabolic encephalopathy Urinary tract infection Possible sepsis Atrial fibrillation with RVR, currently in normal sinus rhythm History of CVA/TIA Hyponatremia Hypokalemia CKD stage III Coronary artery disease HTN Thyroid disorder Dementia Osteoarthritis Mitral regurgitation Mild pulmonary hypertension Plan: Continue on current medication regime ,monitoring and symptomatic treatment. Maintain IV antibiotics of Zosyn, IV fluid hydration of D5 W. receiving potassium supplements with repeat potassium at 1600 .Close monitoring of sodium, potassium, with repeat labs ordered for a.m. continue supportive care. The impression and plan of care has been dictated as directed. : I performed a history and examination of this patient, discussed the same with the dictator. I agree with the dictator's note ,documented as a scribe. Any additional findings or plans will be noted.
[2018-05-31] MEDS: LEVOTHYROXINE 75 MCG TAB PO SCH (20:15)
[2018-05-31] MEDS: LEVOTHYROXINE 100 MCG TAB PO SCH (20:16)
[2018-05-31 20:40] LABS: Glucose,Whole Blood 159 mg/dL (75-99)
[2018-06-01] MEDS: D5W WITH KCL 20 MEQ/L 1,000 ML IV SCH ×2 (00:34→17:23)
[2018-06-01] MEDS: POTASSIUM CHLORIDE ER 10 MEQ TAB.ER.PRT PO SCH (06:00)
[2018-06-01] MEDS: POLYETHYLENE GLYCOL 3350 17 GM POWD.PACK PO SCH (06:00)
[2018-06-01] MEDS: ACETAMINOPHEN TAB 500 MG TAB PO SCH ×3 (06:00→17:25)
[2018-06-01] MEDS: buPROPion SR 100 MG TABLET.ER PO SCH ×2 (06:00→17:25)
[2018-06-01] MEDS: ASPIRIN 81 MG PO SCH (06:00)
[2018-06-01] MEDS: MULTIVITAMINS, THERA 1 EACH TAB PO SCH (06:00)
[2018-06-01] MEDS: CHLORTHALIDONE 25 MG TAB PO SCH (06:00)
[2018-06-01] MEDS: THIAMINE 100 MG TAB PO SCH (06:01)
[2018-06-01 06:26] LABS: Glucose,Whole Blood 180 mg/dL (75-99)
[2018-06-01 08:14] LABS: Basophils % (A) 0 %; Eosinophils # (A) 0.2 k/uL (0-0.7); Eosinophils % (A) 2 %; HCT 42.7 % (34.0-46.0); HGB 13.3 gm/dL (11.4-16.0); Hypochromasia Slight; Lymphocytes # (A) 3.1 k/uL (1.0-4.8); Lymphocytes % (A) 23 %; MCH 27.2 pg (25.0-35.0); MCHC 31.1 g/dL (31.0-37.0); MCV 87.6 fL (80.0-100.0); Monocytes # (A) 0.5 k/uL (0-1.0); Monocytes % (A) 4 %; Neutrophils # (A) 9.3 k/uL (1.3-7.7); Neutrophils % (A) 70 %; Platelet Count 227 k/uL (150-450); RBC 4.87 m/uL (3.80-5.40); RDW 15.2 % (11.5-15.5); WBC 13.3 k/uL (3.8-10.6)
[2018-06-01] MEDS: ENOXAPARIN 40 MG/0.4 ML SYRINGE SQ SCH (08:19)
[2018-06-01] MEDS: PANTOPRAZOLE 40 MG/10 ML VIAL IVP SCH (08:19)
[2018-06-01] MEDS: PIPERACILLIN-TAZOBACTAM 3.375 GM in DEXTROSE/WATER 1 50ML.BAG IVPB SCH ×3 (08:19→22:44)
[2018-06-01 08:24] LABS: Magnesium 1.7 mg/dL (1.6-2.3); Potassium 4.2 mmol/L (3.5-5.1)
[2018-06-01 12:38] LABS: Glucose,Whole Blood 181 mg/dL (75-99)
[2018-06-01 17:01] LABS: Glucose,Whole Blood 156 mg/dL (75-99)
--- NOTE | 2018-06-01 18:01 | PN ---
PROGRESS NOTE DATE OF SERVICE: 06/01/2018 This 83-year-old woman was admitted with multiple medical issues and mental status changes, possible metabolic encephalopathy, also had a UTI. The patient had possible sepsis present on admission. The patient was severely confused at the time of admission but currently the confusion the patient is responding at times, but still the patient is stuporous and unable to follow commands clearly and apparently the p.o. intake appears to be also very poor. Swallow test could not be completed because the patient is not at this time. Currently patient is NO CODE at this time. PAST MEDICAL HISTORY: Reviewed. REVIEW OF SYSTEMS: Could not be taken. CURRENT MEDICATIONS ARE: Reviewed and include: 1. Tylenol 1000 mg q.8h p.r.n. 2. Aspirin 81 mg. 3. Wellbutrin 200 mg b.i.d. 4. Hydrocodone 50 mg. 5. Lovenox 40 mg subcu. 6. Synthroid. 7. Ativan. 8. Zosyn IV. 9. Vitamin B1. PHYSICAL EXAM: GENERAL: Patient is stuporous, confused. VITAL SIGNS: Pulse 59, blood pressure 130/72, respiration 18, temperature 97.6, pulse ox 98% on 2 L. HEENT: Conjunctivae normal. Oral mucosa moist. NECK is no jugular venous distention. No carotid bruit. No lymph node enlargement. CARDIOVASCULAR: S1, S2 muffled. RESPIRATIONS: Breath sounds diminished at the bases. A few scattered rhonchi and crackles. ABDOMEN: Soft, nontender. No mass palpable. LEGS: No edema. No swelling. CENTRAL NERVOUS SYSTEM: Diffusely weak. LABS: WBC 15.3, sodium 140, potassium 4.2, and glucose is 173. The repeat chest x- ray done yesterday showed bibasilar atelectasis. ASSESSMENT: 1. Possible urinary tract infection with sepsis, present on admission. 2. Change in mental status, acute on chronic metabolic encephalopathy. 3. Possible atelectasis. 4. Atrial fibrillation with rapid ventricular rate, currently normal sinus rhythm, paroxysmal. 5. History of cerebrovascular accident, transient ischemic attack. 6. Hyponatremia. 7. Hypokalemia. 8. Chronic kidney stage 3. 9. Coronary artery disease. 10.Hypertension. 11.Hypothyroidism. 12.History of dementia. 13.Degenerative joint disease. 15.Mild pulmonary hypertension. 16.NO CODE, NO CPR, NO VENT. RECOMMENDATIONS AND DISCUSSION: In this 83-year-old woman who presented with multiple complex medical issues, we will monitor the patient closely. I would recommend continue the antibiotics. Continue the IV fluids. The sodium is improved significantly. I would continue with PT, OT evaluation and the cultures are negative so far. The prognosis guarded because of multiple complex medical issues. We will also get in touch with the legal guardian regarding the guarded prognosis of the patient. Further recommendations to follow. MMODL / IJN: [id number] / MTDD
[2018-06-01] MEDS: LEVOTHYROXINE 100 MCG TAB PO SCH (20:43)
[2018-06-01] MEDS: LEVOTHYROXINE 75 MCG TAB PO SCH (20:43)
[2018-06-01 20:51] LABS: Glucose,Whole Blood 165 mg/dL (75-99)
[2018-06-02] MEDS: D5W WITH KCL 20 MEQ/L 1,000 ML IV SCH (05:16)
[2018-06-02] MEDS: CHLORTHALIDONE 25 MG TAB PO SCH (05:34)
[2018-06-02] MEDS: ACETAMINOPHEN TAB 500 MG TAB PO SCH ×3 (05:34→16:52)
[2018-06-02] MEDS: ASPIRIN 81 MG PO SCH (05:34)
[2018-06-02] MEDS: POLYETHYLENE GLYCOL 3350 17 GM POWD.PACK PO SCH (05:34)
[2018-06-02] MEDS: MULTIVITAMINS, THERA 1 EACH TAB PO SCH (05:34)
[2018-06-02] MEDS: POTASSIUM CHLORIDE ER 10 MEQ TAB.ER.PRT PO SCH (05:34)
[2018-06-02] MEDS: buPROPion SR 100 MG TABLET.ER PO SCH ×2 (05:34→16:52)
[2018-06-02] MEDS: THIAMINE 100 MG TAB PO SCH (05:35)
[2018-06-02] MEDS: PANTOPRAZOLE 40 MG TABLET PO SCH (05:35)
[2018-06-02 06:10] LABS: Glucose,Whole Blood 165 mg/dL (75-99)
[2018-06-02 06:45] LABS: Basophils % (A) 0 %; Eosinophils # (A) 0.4 k/uL (0-0.7); Eosinophils % (A) 3 %; HCT 43.2 % (34.0-46.0); HGB 13.4 gm/dL (11.4-16.0); Hypochromasia Slight; Lymphocytes # (A) 2.7 k/uL (1.0-4.8); Lymphocytes % (A) 25 %; MCH 26.8 pg (25.0-35.0); MCV 86.5 fL (80.0-100.0); Mean Platelet Volume 7.7; Monocytes # (A) 0.6 k/uL (0-1.0); Monocytes % (A) 5 %; Neutrophils # (A) 7.2 k/uL (1.3-7.7); Neutrophils % (A) 65 %; Platelet Count 215 k/uL (150-450); RDW 14.9 % (11.5-15.5); WBC 11.1 k/uL (3.8-10.6)
[2018-06-02 06:57] LABS: Calcium 7.8 mg/dL (8.4-10.2); Potassium 4.1 mmol/L (3.5-5.1)
[2018-06-02] MEDS: ENOXAPARIN 40 MG/0.4 ML SYRINGE SQ SCH (08:46)
[2018-06-02] MEDS: PIPERACILLIN-TAZOBACTAM 3.375 GM in DEXTROSE/WATER 1 50ML.BAG IVPB SCH ×2 (08:46→16:52)
[2018-06-02 11:18] LABS: Glucose,Whole Blood 164 mg/dL (75-99)
[2018-06-02] MEDS: SODIUM CHLORIDE 0.9% 1,000 ML IV SCH (12:05)
[2018-06-02 13:22] VITALS: RESP 16
[2018-06-02 16:56] LABS: Glucose,Whole Blood 123 mg/dL (75-99)
[2018-06-02 19:59] LABS: Glucose,Whole Blood 114 mg/dL (75-99)
[2018-06-02] MEDS: LEVOTHYROXINE 75 MCG TAB PO SCH (21:46)
[2018-06-02] MEDS: LEVOTHYROXINE 100 MCG TAB PO SCH (21:47)
[2018-06-02 21:51] VITALS: TEMP 97.8
[2018-06-03] MEDS: PIPERACILLIN-TAZOBACTAM 3.375 GM in DEXTROSE/WATER 1 50ML.BAG IVPB SCH ×3 (00:20→15:49)
[2018-06-03] MEDS: SODIUM CHLORIDE 0.9% 1,000 ML IV SCH ×2 (00:21→15:48)
[2018-06-03 05:03] VITALS: BP 123/73; PULSE 58
[2018-06-03 07:07] LABS: Glucose,Whole Blood 91 mg/dL (75-99)
[2018-06-03] MEDS: ACETAMINOPHEN TAB 500 MG TAB PO SCH ×3 (08:00→15:59)
[2018-06-03] MEDS: ASPIRIN 81 MG PO SCH (08:00)
[2018-06-03] MEDS: buPROPion SR 100 MG TABLET.ER PO SCH ×2 (08:01→17:41)
[2018-06-03] MEDS: POTASSIUM CHLORIDE ER 10 MEQ TAB.ER.PRT PO SCH (08:01)
[2018-06-03] MEDS: MULTIVITAMINS, THERA 1 EACH TAB PO SCH (08:01)
[2018-06-03] MEDS: POLYETHYLENE GLYCOL 3350 17 GM POWD.PACK PO SCH (08:01)
[2018-06-03] MEDS: CHLORTHALIDONE 25 MG TAB PO SCH (08:01)
[2018-06-03] MEDS: THIAMINE 100 MG TAB PO SCH (08:02)
[2018-06-03] MEDS: PANTOPRAZOLE 40 MG TABLET PO SCH (08:02)
[2018-06-03] MEDS: ENOXAPARIN 40 MG/0.4 ML SYRINGE SQ SCH (08:04)
--- NOTE | 2018-06-03 10:20 | P.PN ---
Subjective Progress Note Date: 06/02/18 Progress note being dictated for Dr. García. Interval history: Patient is an 83-year-old female who has a history of vascular dementia and stroke and is a resident [facility] who had some change in mental status and was sent to [place] emergency room. Apparently the patient had had decreased alertness and usually she is oriented to self but she was more confused. Also she had not been eating as well or drinking is good. At [place] emergency room she was found to have acute kidney injury elevated troponins and leukocytosis. She was transferred to [facility] with chief complaint of altered mental status. CAT scan of the brain showed atrophy, chest x-ray was unremarkable. EKG showed atrial fibrillation with a rapid ventricular response and a right bundle branch block initially. She does admit to the inpatient unit and has had neurology as well as cardiology consultation. 05/29/2018. Patient was seen and examined this morning. She is laying in bed. She is continued to be confused and there a poor historian. No reported fever. Blood culture, and urine culture pending. 2 troponins were found to be mildly elevated , non-trending and not consistent with acute myocardial infarction. The patient 's sodium level is elevated. IV fluids changed to D5 water. She is on IV antibiotics Zosyn. 06/09/2018 maintained on D5W at 75 MLS an hour, sodium down to 150, CO2 21. Remains confused, sometimes oriented to person. Spit out beta kingston this morning, telemetry reporting heart rates up into the 150s. Continues on Zosyn, Afebrile, WBC up to 17.7. Echo reporting normal LV function, EF 60-65%, mild-to -moderate mitral regurgitation, mild pulmonary hypertension. 05/31/2018 continues on D5W with sodium improving, 146. Potassium 2.6, receiving supplements. Telemetry reporting sinus rhythm with paroxysmal atrial fibrillation. 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 Evaluated by cardiology, IV beta kingston discontinued, oral beta kingston resumed. Maintained on IV antibiotics, T-max 100.9. Blood cultures remain negative .Earlier had been more lethargic, not talking; currently she's responding, answering simple questions. 06/02/2018 remains stuporous, unable to follow commands. Oral intake remains poor. Speech therapist we attempted to evaluate swallow at bedside, the patient remains lethargic and poorly responsive. Maintained on IV antibiotics, afebrile, leukocytosis improving. Significant improvement in sodium, hyponatremia resolved. Objective - Vital Signs Vital signs: Vital Signs Temp 97.8 F 06/02/18 21:00 Pulse 65 06/02/18 21:00 Resp 16 06/02/18 21:00 BP 124/49 06/02/18 21:00 Pulse Ox 100 06/02/18 21:00 Intake & Output 06/02/18 06/02/18 06/03/18 06:59 18:59 06:59 Weight 70 kg 70 kg Other: Voiding Method Diaper Diaper Incontinent Incontinent # Voids 2 1 - Exam VITAL SIGNS: As mentioned above GENERAL: Patient is laying in bed, confused, stuporous HEENT: Normocephalic, oral mucosa dry NECK: No JVD. Supple CARDIOVASCULAR: S1, S2 muffled. Systolic murmur RESPIRATION: Breath sounds diminished in the bases. Occasional scattered rhonchi and crackles. ABDOMEN: Soft, nontender . Bowel sounds heard. LEGS: No significant edema, no swelling NERVOUS SYSTEM: Generalized diffuse weakness Microbiology 05/31/18 15:08 Blood Blood Culture - Preliminary No Growth after 48 hours 05/28/18 11:30 Blood Blood Culture - Preliminary No Growth after 120 hours 05/31/18 11:03 Blood Blood Culture - Preliminary No Growth after 48 hours 05/28/18 11:18 Blood Blood Culture - Preliminary No Growth after 120 hours - Labs CBC & Chem 7: 06/02/18 06:11 06/02/18 06:11 Labs: Abnormal Lab Results - Last 24 Hours (Table) 06/02/18 06/02/18 06/02/18 Range/Units 06:07 06:11 06:11 WBC 11.1 H (3.8-10.6) k/uL BUN 25 H (7-17) mg/dL Glucose 153 H (74-99) mg/dL POC Glucose (mg/dL) 165 H (75-99) mg/dL Calcium 7.8 L (8.4-10.2) mg/dL 06/02/18 06/02/18 06/02/18 Range/Units 11:08 16:54 19:57 WBC (3.8-10.6) k/uL BUN (7-17) mg/dL Glucose (74-99) mg/dL POC Glucose (mg/dL) 164 H 123 H 114 H (75-99) mg/dL Calcium (8.4-10.2) mg/dL Microbiology - Last 24 Hours (Table) 05/31/18 15:08 Blood Culture - Preliminary Blood No Growth after 48 hours 05/28/18 11:30 Blood Culture - Preliminary Blood No Growth after 120 hours 05/31/18 11:03 Blood Culture - Preliminary Blood No Growth after 48 hours 05/28/18 11:18 Blood Culture - Preliminary Blood No Growth after 120 hours Assessment and Plan Assessment: Possible acute UTI with sepsis, present on admission Mental status changes negative CAT scan possible acute on chronic metabolic encephalopathy Atelectasis Possible sepsis Atrial fibrillation with RVR, currently in normal sinus rhythm History of CVA/TIA Hyponatremia, resolved Hypokalemia, resolved CKD stage III Coronary artery disease HTN Thyroid disorder Dementia Osteoarthritis Mitral regurgitation Mild pulmonary hypertension No code, no CPR, no intubation Plan: Continue on current medication regime ,monitoring and symptomatic treatment. Maintain IV antibiotics of Zosyn, gentle IV fluid hydration. Prognosis guarded given multiple complex medical issues, we will attempt to discuss with legal guardian. Maintain supportive care. Further recommendations to follow. The impression and plan of care has been dictated as directed. : I performed a history and examination of this patient, discussed the same with the dictator. I agree with the dictator's note ,documented as a scribe. Any additional findings or plans will be noted.
[2018-06-03 11:16] LABS: Glucose,Whole Blood 86 mg/dL (75-99)
[2018-06-03 11:26] VITALS: BMI 26.3
--- NOTE | 2018-06-03 15:42 | P.DS ---
Providers Date of admission: 05/27/18 21:00 Expected date of discharge: 06/03/18 Attending physician: Luisito García Consults: 05/28/18 10:19 Consult Physician Stat Consulting Provider: Jin Bowers Consult Reason/Comments: Elevated Trop Do you want consulting provider notified?: Yes Consult Physician Urgent Consulting Provider: Leah Barclay Consult Reason/Comments: Altered Mental Status Do you want consulting provider notified?: Yes 05/28/18 14:59 Consult Physician Routine Consulting Provider: Leah Barclay Consult Reason/Comments: stroke?? Do you want consulting provider notified?: Yes Primary care physician: Eldon Taylor Hospital Course: Final Diagnoses: Possible acute UTI with sepsis, present on admission Mental status changes negative CAT scan possible acute on chronic metabolic encephalopathy Atelectasis Possible sepsis Atrial fibrillation with RVR, currently in normal sinus rhythm History of CVA/TIA Hyponatremia, resolved Hypokalemia, resolved CKD stage III Coronary artery disease HTN Thyroid disorder Dementia Osteoarthritis Mitral regurgitation Mild pulmonary hypertension No code, no CPR, no intubation Comfort care Hospital course:Patient is an 83-year-old female who has a history of vascular dementia and stroke and is a resident [facility] who had some change in mental status and was sent to [place] emergency room. Apparently the patient had had decreased alertness and usually she is oriented to self but she was more confused. Also she had not been eating as well or drinking is good. At [place] emergency room she was found to have acute kidney injury elevated troponins and leukocytosis. She was transferred to [facility] with chief complaint of altered mental status. CAT scan of the brain showed atrophy, chest x-ray was unremarkable. EKG showed atrial fibrillation with a rapid ventricular response and a right bundle branch block initially. She does admit to the inpatient unit and has had neurology as well as cardiology consultation. 05/29/2018. Patient was seen and examined this morning. She is laying in bed. She is continued to be confused and there a poor historian. No reported fever. Blood culture, and urine culture pending. 2 troponins were found to be mildly elevated , non-trending and not consistent with acute myocardial infarction. The patient 's sodium level is elevated. IV fluids changed to D5 water. She is on IV antibiotics Zosyn. 06/09/2018 maintained on D5W at 75 MLS an hour, sodium down to 150, CO2 21. Remains confused, sometimes oriented to person. Spit out beta kingston this morning, telemetry reporting heart rates up into the 150s. Continues on Zosyn, Afebrile, WBC up to 17.7. Echo reporting normal LV function, EF 60-65%, mild-to -moderate mitral regurgitation, mild pulmonary hypertension. 05/31/2018 continues on D5W with sodium improving, 146. Potassium 2.6, receiving supplements. Telemetry reporting sinus rhythm with paroxysmal atrial fibrillation. 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 Evaluated by cardiology, IV beta kingston discontinued, oral beta kingston resumed. Maintained on IV antibiotics, T-max 100.9. Blood cultures remain negative .Earlier had been more lethargic, not talking; currently she's responding, answering simple questions. 06/02/2018 remains stuporous, unable to follow commands. Oral intake remains poor. Speech therapist attempted to evaluate swallow at bedside, the patient remains lethargic and poorly responsive. Maintained on IV antibiotics, afebrile , leukocytosis improving. Significant improvement in sodium, hyponatremia resolved. Legal guardian updated on poor prognosis, requests patient be returned to [facility] with comfort care/hospice. Patient being discharged to [facility] in a stable condition with guarded prognosis. EXAM: GENERAL: Patient is laying in bed, confused, stuporous CARDIOVASCULAR: S1, S2 muffled. Systolic murmur RESPIRATION: Breath sounds diminished in the bases. Occasional scattered rhonchi and crackles. ABDOMEN: Soft, nontender . Bowel sounds heard. NERVOUS SYSTEM: Generalized diffuse weakness Microbiology 05/28/18 11:30 Blood Blood Culture - Final No Growth after 144 hours 05/31/18 11:03 Blood Blood Culture - Preliminary No Growth after 72 hours 05/28/18 11:18 Blood Blood Culture - Final No Growth after 144 hours 05/31/18 15:08 Blood Blood Culture - Preliminary No Growth after 48 hours The impression and plan of care has been dictated as directed. : I performed a history and examination of this patient, discussed the same with the dictator. I agree with the dictator's note ,documented as a scribe. Any additional findings or plans will be noted. Time taken: 35 minutes Patient Condition at Discharge: Stable Plan - Discharge Summary Discharge Rx Participant: No New Discharge Prescriptions: New LORazepam [Ativan] 0.5 mg PO Q8H PRN 3 Days #9 tab PRN Reason: Anxiety Acetaminophen Suppository [Tylenol Suppository] 325 mg RECTAL Q6H PRN #1 supp PRN Reason: Pain MORPHINE ORAL DANIEL CONC 20mg/mL [Roxanol Oral Soln Conc 20MG/ML] 10 mg SL Q4H PRN 3 Days #9 ml PRN Reason: Pain Scopolamine 1.5MG/72Hr Patch [TransDerm Scop] 1 patch TRANSDERM Q72H #3 patch No Action buPROPion HCL [Wellbutrin SR] 200 mg PO BID@ Acetaminophen Tab [Tylenol Tab] 1,000 mg PO TID@ Levothyroxine Sodium [Synthroid] 175 mcg PO HS@2100 Atenolol 25 mg PO DAILY@1700 Aspirin 81 mg PO DAILY@0700 Discharge Medication List Acetaminophen Tab [Tylenol Tab] 1,000 mg PO TID@,,05/27/18 [History] Aspirin 81 mg PO DAILY@0700 05/27/18 [History] Atenolol 25 mg PO DAILY@1700 05/27/18 [History] Levothyroxine Sodium [Synthroid] 175 mcg PO HS@2100 05/27/18 [History] buPROPion HCL [Wellbutrin SR] 200 mg PO BID@,17 05/27/18 [History] Acetaminophen Suppository [Tylenol Suppository] 325 mg RECTAL Q6H PRN #1 supp [Rx] LORazepam [Ativan] 0.5 mg PO Q8H PRN 3 Days #9 tab 06/03/18 [Rx] MORPHINE ORAL DANIEL CONC 20mg/mL [Roxanol Oral Soln Conc 20MG/ML] 10 mg SL Q4H PRN 3 Days #9 ml 06/03/18 [Rx] Scopolamine 1.5MG/72Hr Patch [TransDerm Scop] 1 patch TRANSDERM Q72H #3 patch [Rx] Follow up Appointment(s)/Referral(s): Eldon Taylor MD [Primary Care Provider] - 3 Days Patient Instructions/Handouts: Altered Mental Status (ED) Activity/Diet/Wound Care/Special Instructions: [facility] comfort care/hospice Discharge Disposition: TRANSFER TO SNF/ECF
== END 2018-06-03 18:55 | DRG 871 ==
LOC: EC 18:20 → 6SEL 21:00 → 5MS5E 06-02 09:39
PROVIDERS: ADMIT Hospitalist; ATTEND Hospitalist
DX: A41.9 Sepsis, unspecified organism (principal); G93.41 Metabolic encephalopathy; E87.0 Hyperosmolality and hypernatremia; J98.11 Atelectasis; N17.9 Acute kidney failure, unspecified; N39.0 Urinary tract infection, site not specified; E86.0 Dehydration; I27.20 Pulmonary hypertension, unspecified; I48.0 Paroxysmal atrial fibrillation; F20.9 Schizophrenia, unspecified; F01.50 Vascular dementia, unspecified severity, without behavioral disturbance, psychotic disturbance, mood disturbance, and anxiety; I34.0 Nonrheumatic mitral (valve) insufficiency; N18.3 Chronic kidney disease, stage 3 (moderate); I45.10 Unspecified right bundle-branch block; E03.9 Hypothyroidism, unspecified; E87.6 Hypokalemia; I12.9 Hypertensive chronic kidney disease with stage 1 through stage 4 chronic kidney disease, or unspecified chronic kidney disease; I25.10 Atherosclerotic heart disease of native coronary artery without angina pectoris; M19.90 Unspecified osteoarthritis, unspecified site; R77.9 Abnormality of plasma protein, unspecified; R32 Unspecified urinary incontinence; Z51.5 Encounter for palliative care; Z86.73 Personal history of transient ischemic attack (TIA), and cerebral infarction without residual deficits; Z79.82 Long term (current) use of aspirin; Z79.890 Hormone replacement therapy; Z88.1 Allergy status to other antibiotic agents; Z66 Do not resuscitate
CPT/HCPCS: 36415; 70450; 71045; 80048; 80053; 81001; 82550; 82553; 83605; 83735; 84100; 84132; 84484; 85025; 85610; 85730; 87040; 93005; 93306; 95819; 96360; 96361; 99285